=== PATIENT | female | born 1975 | race Caucasian/White ===

== ENCOUNTER → 2017-04-13 | Outpatient (REF) ==
[~2017-04-13] MED LIST: ANTIDEPRESSANT; MOTRIN 600600 MG/TAB PO; NORCO 325 MG-51 TAB PO; VITAMIN D32000 I1 PO
== END ==
LOC: ZLAB.WCH 08:47
DX: Z01.89 Encounter for other specified special examinations (principal)

== ENCOUNTER 2018-06-23 18:30 | Emergency (ER) | payer BC ==
[~2018-06-23] VITALS: Ht 160 cm; Wt 115.1 kg
[2018-06-23 18:37] VITALS: BP 130/82; TEMP 97.9
[2018-06-23] MEDS ORDERED: ULTRAM 50MG TAB50 MG PO (19:04)
[2018-06-23] MEDS ORDERED: CYMBALTA 60MG60 MG PO (19:04)
[2018-06-23] MEDS ORDERED: BLOOD PRESSURE MED (19:05)
[2018-06-23 20:20] VITALS: PULSE 88
== END 2018-06-23 20:20 | disposition home or self-care (01) ==
LOC: COL.ER 18:30
DX: M23.91 Unspecified internal derangement of right knee (principal); Z79.891 Long term (current) use of opiate analgesic
CPT/HCPCS: J1885